=== PATIENT | female | born 1970 | race Asian ===

== ENCOUNTER 2017-01-28 10:35 | Outpatient (CLI) | payer MEDICAID ==
--- NOTE | 2017-01-29 17:01 | Mammography Report ---
DIGITAL SCREENING MAMMOGRAM: 01/28/2017 CLINICAL INDICATION: A 46-year-old for screening. COMPARISON: 12/2015, 12/2014, 04/2012. TECHNIQUE: Routine CC and MLO projections were obtained of the breasts. FINDINGS: The breasts demonstrate heterogeneously dense fibroglandular parenchyma bilaterally. Ther e is a shifting pattern of circumscribed nodules bilaterally, compatible with waxing and waning cysts . Coarse and punctate, typically benign calcifications are present. No suspicious masses, clustered microcalcifications, or regions of architectural distortion are identified. IMPRESSION: BENIGN FINDINGS. RECOMMENDATION: Routine annual screening unless otherwise clinically indicated. BI-RADS category 2, benign findings. STANDARD QUALIFYING STATEMENTS 1. This examination was reviewed with the aid of Computer-Aided Detection (CAD). 2. A negative or benign imaging report should not delay biopsy if clinically suspicious findings are present. Consider surgical consultation if warranted. More than 5% of cancers are not identified by i maging. 3. Dense breasts may obscure an underlying neoplasm. JOB #: [id number] EXT JOB #:[id number]
== END 2017-01-28 10:36 | disposition home or self-care (01) ==
LOC: DI 10:35
PROVIDERS: ATTEND Physician Assistant Medical
DX: Z12.31 Encounter for screening mammogram for malignant neoplasm of breast (principal)
CPT/HCPCS: 77067

== ENCOUNTER 2017-02-09 14:23 | Outpatient (CLI) | payer MEDICAID | END 2017-02-09 14:24 | disposition home or self-care (01) | LOC: SC 14:23 | PROVIDERS: ATTEND Internal Medicine Pulmonary Disease | DX: G47.30 Sleep apnea, unspecified (principal); G47.10 Hypersomnia, unspecified; R06.83 Snoring; G47.8 Other sleep disorders; G47.00 Insomnia, unspecified | CPT/HCPCS: 99203; 99212 ==

== ENCOUNTER 2017-03-24 11:15 | Outpatient (CLI) | payer MEDICAID | END 2017-03-24 11:16 | disposition home or self-care (01) | LOC: SC 11:15 | PROVIDERS: ATTEND Specialist | DX: G47.00 Insomnia, unspecified (principal); R06.83 Snoring | CPT/HCPCS: 99212; 99214 ==

== ENCOUNTER 2018-04-29 10:12 | Outpatient (CLI) | payer MEDICAID ==
--- NOTE | 2018-04-29 15:20 | DEXA Report ---
Reason: CROHN'S DISEASE Procedure Date: 04/29/2018 Accession Number: [id number] / [id number] Procedure: DEX - Dexa Spine and/or Hip CPT Code: FULL RESULT: EXAM: Dexa Spine and/or Hip DATE: 04/29/2018 10:55 AM CLINICAL HISTORY: CROHN'S DISEASE TECHNIQUE: Dual energy x-ray absorptiometry (DXA) was performed on a iwoca System. Regions measured are the AP Spine, femoral neck, and if needed forearm. COMPARISON: None. In accordance with the International Society for Clinical Densitometry (ISCD) guidelines, data from previous exams may be reanalyzed using current recommendations and techniques. This is done to allow a more accurate basis for comparison with the current study. FINDINGS: The data for the lumbar spine is as follows: BMD (g/cm/cm) T-SCORE Z-SCORE REGION L1 1.041 -0.7 -0.5 L2 1.126 -0.6 -0.4 L3 1.175 -0.2 0.0 L4 1.162 -0.3 -0.1 TOTAL 1.130 -0.4 -0.2 NOTE: All evaluable vertebrae are used for classification The data for the hip is as follows: BMD (g/cm/cm) T-SCORE Z-SCORE REGION Neck 0.774 -1.9 -1.2 TOTAL 0.768 -1.9 -1.5 NOTE: The femoral neck or total proximal femur, whichever is lowest, is used for classification. IMPRESSION: THE WHO CLASSIFICATION BASED ON THE INTERNATIONAL REFERENCE STANDARD IS OSTEOPENIA. THE FRACTURE RISK IS INCREASED. RECOMMENDATION: Patients with diagnosis of osteoporosis or osteopenia should have regular bone mineral density assessment. For those eligible for Medicare, routine testing is allowed once every 2 years. Testing frequency can be increased for patients who have rapidly progressing disease or for those who are receiving medical therapy to restore bone mass. COMMENT: World Health Organization (WHO) definitions for osteoporosis and osteopenia: NORMAL BMD: T-score at -1.0 or higher, fracture risk is low OSTEOPENIA BMD: T-score between -1.0 and -2.5, fracture risk is increased. OSTEOPOROSIS BMD: T-score at -2.5 or lower, fracture risk is high. National Osteoporosis Foundation recommends: 1. Obtain adequate dietary calcium (at least 1200 mg per day) and vitamin D (400-800 international units per day). 2. Participate, as appropriate, in regular weightbearing and muscle-strengthening exercise. 3. Avoid tobacco use and reduce alcohol and caffeine intake. 4. For more detailed information see the website at www.NOF.org.
== END 2018-04-29 10:13 | disposition home or self-care (01) ==
LOC: DI 10:12
PROVIDERS: ATTEND Physician Assistant Medical
DX: M85.88 Other specified disorders of bone density and structure, other site (principal); K50.90 Crohn's disease, unspecified, without complications
CPT/HCPCS: 77080

== ENCOUNTER 2018-06-11 08:00 | Outpatient (CLI) | payer MEDICAID | END 2018-06-11 23:59 | disposition home or self-care (01) | LOC: LAB.WCP 08:00 | PROVIDERS: ATTEND Surgery | DX: K50.80 Crohn's disease of both small and large intestine without complications (principal) | CPT/HCPCS: 83993 ==

== ENCOUNTER 2018-08-12 11:13 | Outpatient (CLI) | payer MEDICAID | END 2018-08-12 11:14 | disposition home or self-care (01) | LOC: LAB.WCP 11:13 | PROVIDERS: ATTEND Internal Medicine | DX: K50.80 Crohn's disease of both small and large intestine without complications (principal) | CPT/HCPCS: 36415; 81599; 83520 ==

== ENCOUNTER 2019-12-14 15:04 | Outpatient (CLI) | payer MEDICAID ==
[2019-12-14 19:01] LABS: BASOPHILS # (AUTO) 0.1 10^3/uL (0.0-0.1); BASOPHILS % (AUTO) 0.8 %; EOSINOPHILS # (AUTO) 0.1 10^3/uL (0.0-0.7); EOSINOPHILS % (AUTO) 1.7 %; HGB - HEMOGLOBIN 13.9 g/dL (12.0-16.0); LYMPHOCYTES # (AUTO) 2.6 10^3/uL (1.5-3.5); LYMPHOCYTES % (AUTO) 33.5 %; MEAN CORPUSCULAR HEMOGLOBIN 31.2 pg (27.0-31.0); MEAN CORPUSCULAR HGB CONC 33.8 g/dL (32.0-36.0); MEAN CORPUSCULAR VOLUME 92.4 fL (81.0-99.0); MONOCYTES # (AUTO) 0.4 10^3/uL (0.0-1.0); MONOCYTES % (AUTO) 4.7 %; NEUTROPHILS # (AUTO) 4.6 10^3/uL (1.5-6.6); PLT - PLATELET COUNT 349 10^3/uL (130-450); RED BLOOD COUNT 4.45 10^6/uL (4.20-5.40); RED CELL DISTRIBUTION WIDTH 13.4 % (12.0-15.0); WHITE BLOOD COUNT 7.8 x10^3/uL (4.8-10.8)
[2019-12-14 19:13] LABS: ALBUMIN/GLOBULIN RATIO 1.3 (1.0-2.2); ALKALINE PHOSPHATASE 36 IU/L (42-121); ALT ALANINE AMINOTRANSFERASE 21 IU/L (10-60); AST ASPARTATE AMINOTRANSFERASE 23 IU/L (10-42); BILIRUBIN,TOTAL 0.4 mg/dL (0.2-1.0); BUN - BLOOD UREA NITROGEN 14 mg/dL (6-20); CALCIUM 9.1 mg/dL (8.5-10.3); CARBON DIOXIDE - CO2 24 mmol/L (21-32); CHLORIDE 102 mmol/L (101-111); CREATININE 0.9 mg/dL (0.4-1.0); CRP - C-REACTIVE PROTEIN < 1.0 mg/dL (0-1.0); GLUCOSE 79 mg/dL (70-100); SODIUM 136 mmol/L (135-145); TOTAL PROTEIN 7.1 g/dL (6.7-8.2)
== END 2019-12-14 23:59 | disposition home or self-care (01) ==
LOC: LAB.WCP 15:04
PROVIDERS: ATTEND Physician Assistant Medical
DX: Z00.00 Encounter for general adult medical examination without abnormal findings (principal); K50.10 Crohn's disease of large intestine without complications
CPT/HCPCS: 36415; 80053; 84443; 85025; 86140

== ENCOUNTER 2019-12-19 08:00 | Outpatient (CLI) | payer MEDICAID | END 2019-12-19 23:59 | disposition home or self-care (01) | LOC: LAB.WCP 08:00 | PROVIDERS: ATTEND Internal Medicine Gastroenterology | DX: K50.10 Crohn's disease of large intestine without complications (principal) | CPT/HCPCS: 81599; 82274; 83631 ==

== ENCOUNTER 2020-03-22 11:10 | Outpatient (CLI) | payer MEDICAID | END 2020-03-22 11:11 | disposition critical access hospital (66) | LOC: EMS 11:10 | PROVIDERS: ATTEND Surgery | DX: R55 Syncope and collapse (principal); R11.2 Nausea with vomiting, unspecified | CPT/HCPCS: A0425; A0427 ==

== ENCOUNTER 2020-03-22 11:27 | Emergency (ER) | payer MEDICAID ==
[2020-03-22] MEDS ORDERED: ONDANSETRON 4 MG/2 ML VIAL IVP STA (11:37)
[2020-03-22] MEDS ORDERED: SODIUM CHLORIDE 0.9% 1,000 ML IV STA ×2 (11:37→13:28)
--- NOTE | 2020-03-22 11:42 | ED Physician Documentation ---
History of Present Illness - Stated complaint Stated Complaint: N/V - History obtained from History obtained from: Patient - Additonal information Additional information: Pt presents with nausea, vomiting, and feeling thirsty this morning. She also had some brief mild chest pressure several hours ago that has resolved on its own. Pt states she took cannabis oil last night for the first time and took it again this AM before her symptoms started. She was trying the cannabis oil for her myofascial pain syndrome. She has never used marijuana or cannabis products in the past. Also took ambien last night. Denies other drug use. Denies fever, chills, cough or URI sx, dyspnea, abdominal pain, diarrhea or constipation, urinary symptoms. Review of Systems Constitutional: reports: Reviewed and negative Eyes: reports: Reviewed and negative Ears: reports: Reviewed and negative Nose: reports: Reviewed and negative Throat: reports: Reviewed and negative Cardiac: reports: Chest pain / pressure, Palpitations Respiratory: reports: Reviewed and negative GI: reports: Nausea, Vomiting. denies: Abdominal Pain, Abdominal Swelling, Constipation, Diarrhea, Hematemesis, Bloody / black stool : reports: Reviewed and negative Skin: reports: Reviewed and negative Musculoskeletal: reports: Reviewed and negative Neurologic: reports: Reviewed and negative Psychiatric: reports: Anxiety, Insomnia PD PAST MEDICAL HISTORY - Past Medical History Cardiovascular: None Respiratory: Sleep apnea Endocrine/Autoimmune: None GI: Chronic diarrhea, Chronic constipation, Crohn's disease : None HEENT: None Psych: Anxiety, Panic attacks, Claustrophobia Musculoskeletal: Fatigue, Chronic back pain Derm: Eczema, Other - Past Surgical History General: Colonoscopy - Present Medications Home Medications: Ambulatory Orders Medication Instructions Recorded Confirmed Desogestrel-Ethinyl Estradiol 1 each PO DAILY 01/07/17 06/18/18 [ Day Tablet] Zolpidem [Ambien] 10 mg PO QPM 01/07/17 06/18/18 hydrOXYzine HCL [Hydroxyzine HCl] 10 mg PO AC PRN 01/07/17 06/18/18 Escitalopram [Lexapro] 1 tab ORAL DAILY 03/06/17 06/18/18 Fluticasone [Flonase] 1 sprays AMBERLY BID PRN 03/06/17 06/18/18 Naratriptan HCl 1 mg PO DAILY PRN 06/25/17 06/18/18 Acetaminophen [Tylenol] 325 mg PO RTQ6H PRN 02/10/18 06/18/18 Multivitamin [Multivitamins] 2 cap ORAL DAILY 02/10/18 06/18/18 Methotrexate 6 tab 03/22/20 Ondansetron Odt [Zofran] 4 mg TL Q6H PRN #10 tablet 03/22/20 - Allergies Allergies/Adverse Reactions: Allergies Allergy/AdvReac Type Severity Reaction Status Date / Time azathioprine Allergy Unknown Verified 02/10/18 13:30 azathioprine sodium * Allergy Unknown Verified 02/10/18 13:30 [From Imuran] chicken derived Allergy Unknown Verified 03/22/20 12:18 cinnamon Allergy Unknown Verified 03/22/20 12:18 diphenhydramine Allergy Emesis Verified 02/10/18 13:33 iodine Allergy Unknown Verified 02/10/18 13:30 lidocaine Allergy Edema Verified 02/10/18 13:33 nickel sulfate Allergy Unknown Uncoded 02/10/18 13:33 phenol formaldehyde resin Allergy Unknown Uncoded 02/10/18 13:33 potassium dichromate Allergy Unknown Uncoded 02/10/18 13:33 PPD Allergy Unknown Uncoded 02/10/18 13:33 Shellfish Allergy Edema Uncoded 02/10/18 13:34 PD ED PE NORMAL - Vitals Vital signs reviewed: Yes - General General: Alert and oriented X 3, No acute distress, Well developed/nourished - HEENT HEENT: Atraumatic, Moist mucous membranes - Cardiac Cardiac: RRR, No murmur, No gallop, No rub - Respiratory Respiratory: No respiratory distress, Clear bilaterally - Abdomen Abdomen: Normal bowel sounds, Soft, Non tender, Non distended - Derm Derm: Normal color, Warm and dry, No rash - Extremities Extremities: No deformity, No tenderness to palpate, Normal ROM s pain, No edema, No calf tenderness / cord - Neuro Neuro: Alert and oriented X 3 (awake and alert, but appears intoxicated) Eye Opening: Spontaneous Motor: Obeys Commands Verbal: Oriented GCS Score: 15 - Psych Psych: Normal mood Results - Vitals Vitals: Vital Signs - 24 hr 03/22/20 03/22/20 03/22/20 11:26 12:00 14:00 Temperature 36.2 C L Heart Rate 87 81 94 Respiratory 16 21 20 Rate Blood Pressure 119/69 114/78 107/79 O2 Saturation 99 99 99 03/22/20 14:58 Temperature Heart Rate 85 Respiratory 18 Rate Blood Pressure 108/77 O2 Saturation 99 Oxygen O2 Source Room air - Labs Labs: Laboratory Tests 03/22/20 03/22/20 03/22/20 12:08 12:08 12:08 WBC 7.6 RBC 4.23 Hgb 13.5 Hct 40.2 MCV 95.0 MCH 31.9 H MCHC 33.6 RDW 13.5 Plt Count 246 MPV 9.7 Neut # (Auto) 5.6 Lymph # (Auto) 1.5 [place] # (Auto) 0.3 Eos # (Auto) 0.1 Baso # (Auto) 0.1 Absolute Nucleated RBC 0.00 Nucleated RBC % 0.0 Sodium 136 Potassium 4.2 Chloride 104 Carbon Dioxide 28 Anion Gap 4.0 L BUN 19 Creatinine 0.9 Estimated GFR (MDRD) 67 L Glucose 119 H Calcium 8.7 Total Bilirubin 0.4 AST 28 ALT 33 Alkaline Phosphatase 35 L Troponin I High Sens < 2.3 L Total Protein 6.7 Albumin 3.8 Globulin 2.9 Albumin/Globulin Ratio 1.3 Lipase 35 Urine Color Urine Clarity Urine pH Ur Specific [place] Urine Protein Urine Glucose (UA) Urine Ketones Urine Occult Blood Urine Nitrite Urine Bilirubin Urine Urobilinogen Ur Leukocyte Esterase Urine RBC Urine WBC Ur Squamous Epith Cells Urine Bacteria Ur Microscopic Review Urine Culture Comments Urine HCG, Qual Urine Opiates Screen Ur Oxycodone Screen Urine Methadone Screen Ur Propoxyphene Screen Ur Barbiturates Screen Ur Tricyclics Screen Ur Phencyclidine Scrn Ur Amphetamine Screen U Methamphetamines Scrn U Benzodiazepines Scrn Urine Cocaine Screen U Cannabinoids Screen 03/22/20 14:30 WBC RBC Hgb Hct MCV MCH MCHC RDW Plt Count MPV Neut # (Auto) Lymph # (Auto) [place] # (Auto) Eos # (Auto) Baso # (Auto) Absolute Nucleated RBC Nucleated RBC % Sodium Potassium Chloride Carbon Dioxide Anion Gap BUN Creatinine Estimated GFR (MDRD) Glucose Calcium Total Bilirubin AST ALT Alkaline Phosphatase Troponin I High Sens Total Protein Albumin Globulin Albumin/Globulin Ratio Lipase Urine Color YELLOW Urine Clarity HAZY Urine pH 7.0 Ur Specific [place] 1.020 Urine Protein NEGATIVE Urine Glucose (UA) NEGATIVE Urine Ketones NEGATIVE Urine Occult Blood NEGATIVE Urine Nitrite NEGATIVE Urine Bilirubin NEGATIVE Urine Urobilinogen 0.2 (NORMAL) Ur Leukocyte Esterase TRACE H Urine RBC 0-5 Urine WBC 0-3 Ur Squamous Epith Cells MOD Squamous H Urine Bacteria Few Ur Microscopic Review INDICATED Urine Culture Comments NOT INDICATED Urine HCG, Qual NEGATIVE Urine Opiates Screen NEGATIVE Ur Oxycodone Screen NEGATIVE Urine Methadone Screen NEGATIVE Ur Propoxyphene Screen NEGATIVE Ur Barbiturates Screen NEGATIVE Ur Tricyclics Screen NEGATIVE Ur Phencyclidine Scrn NEGATIVE Ur Amphetamine Screen NEGATIVE U Methamphetamines Scrn NEGATIVE U Benzodiazepines Scrn NEGATIVE Urine Cocaine Screen NEGATIVE U Cannabinoids Screen POSITIVE H PD MEDICAL DECISION MAKING - ED course Complexity details: considered differential, d/w patient ED course: 49 yo F who presented w/ nausea and vomiting after taking cannabis oil for pain. 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 Pt felt better w/ IVF and anti emetics. I advised to avoid cannabis oil and other cannabis products. Return precautions reviewed w/ pt in detail. Departure - Departure Disposition: 01 Home, Self Care Clinical Impression: Cannabis abuse with intoxication Nausea and vomiting Qualifiers: Vomiting type: unspecified Vomiting Intractability: non-intractable Qualified Code(s): R11.2 - Nausea with vomiting, unspecified Condition: Good Prescriptions: Ondansetron Odt [Zofran] 4 mg TL Q6H PRN #10 tablet PRN Reason: Nausea / Vomiting Comments: You presented today with nausea and vomiting that is likely due to your consumption of cannabis oil. Your labs are reassuring. We treated you with antiemetics and IV fluids in the ER. I will discharge you home with antiemetics. Please stop using the cannabis oil. Return if you have new or worsening symptoms. Discharge Date/Time: 03/22/20 15:26
[2020-03-22 12:15] LABS: BASOPHILS # (AUTO) 0.1 10^3/uL (0.0-0.1); BASOPHILS % (AUTO) 0.7 %; EOSINOPHILS # (AUTO) 0.1 10^3/uL (0.0-0.7); EOSINOPHILS % (AUTO) 1.3 %; HGB - HEMOGLOBIN 13.5 g/dL (12.0-16.0); LYMPHOCYTES # (AUTO) 1.5 10^3/uL (1.5-3.5); LYMPHOCYTES % (AUTO) 19.4 %; MEAN CORPUSCULAR HEMOGLOBIN 31.9 pg (27.0-31.0); MEAN CORPUSCULAR HGB CONC 33.6 g/dL (32.0-36.0); MEAN PLATELET VOLUME 9.7 fL (7.9-10.8); MONOCYTES # (AUTO) 0.3 10^3/uL (0.0-1.0); MONOCYTES % (AUTO) 3.6 %; NEUTROPHILS # (AUTO) 5.6 10^3/uL (1.5-6.6); NEUTROPHILS % (AUTO) 74.1 %; PLT - PLATELET COUNT 246 10^3/uL (130-450); RED BLOOD COUNT 4.23 10^6/uL (4.20-5.40); RED CELL DISTRIBUTION WIDTH 13.5 % (12.0-15.0); WHITE BLOOD COUNT 7.6 x10^3/uL (4.8-10.8)
[2020-03-22 12:28] LABS: ALBUMIN 3.8 g/dL (3.2-5.5); ALBUMIN/GLOBULIN RATIO 1.3 (1.0-2.2); BILIRUBIN,TOTAL 0.4 mg/dL (0.2-1.0); CALCIUM 8.7 mg/dL (8.5-10.3); CREATININE 0.9 mg/dL (0.4-1.0); TOTAL PROTEIN 6.7 g/dL (6.7-8.2)
[2020-03-22] MEDS ORDERED: PROMETHAZINE INJ 12.5 MG in SODIUM CHLORIDE 0.9% 50 ML IV STA (12:41)
[2020-03-22 14:34] LABS: MUDS CUTOFF CONCENTRATIONS CUTOFF CONC BELOW:
[2020-03-22 14:37] LABS: BILIRUBIN,URINE NEGATIVE (NEGATIVE); GLUCOSE, URINE (UA) NEGATIVE (NEGATIVE); KETONES,URINE (UA) NEGATIVE (NEGATIVE); LEUKOCYTE ESTERASE, URINE TRACE (NEGATIVE); NITRITE,URINE NEGATIVE (NEGATIVE); OCCULT BLOOD,URINE NEGATIVE (NEGATIVE); PROTEIN,URINE NEGATIVE (NEGATIVE); UROBILINOGEN,URINE 0.2 (NORMAL) E.U./dL (NORMAL)
[2020-03-22 14:42] LABS: CLARITY,URINE HAZY (CLEAR); HCG UR QUAL NEGATIVE
[2020-03-22 14:50] LABS: RBC,URINE 0-5 /HPF (0-5); SQUAMOUS EPITHELIAL CELL,UR MOD Squamous (<= Few)
[2020-03-22 14:51] LABS: BACTERIA,URINE Few /HPF (None Seen)
[2020-03-22 14:52] LABS: AMPHETAMINE SCREEN,URINE NEGATIVE (NEGATIVE); BENZODIAZEPINES SCREEN, URINE NEGATIVE (NEGATIVE); COCAINE SCREEN URINE NEGATIVE (NEGATIVE); METHADONE SCREEN, URINE NEGATIVE (NEGATIVE); METHAMPHETAMINES SCREEN, URINE NEGATIVE (NEGATIVE); OPIATE SCREEN, URINE NEGATIVE (NEGATIVE); OXYCODONE SCREEN, URINE NEGATIVE (NEGATIVE); PROPOXYPHENE SCREEN, URINE NEGATIVE (NEGATIVE); TRICYCLIC ANTIDEPRESSANT,URINE NEGATIVE (NEGATIVE)
[2020-03-22 15:01] VITALS: BP 108/77
== END 2020-03-22 15:26 | disposition home or self-care (01) ==
LOC: EDUNIT# → ED 11:27
DX: F12.129 Cannabis abuse with intoxication, unspecified (principal); R11.2 Nausea with vomiting, unspecified; M79.18 Myalgia, other site; Z87.19 Personal history of other diseases of the digestive system
CPT/HCPCS: 36415; 80053; 80306; 81001; 81025; 83690; 84484; 85025; 93005; 96361; 96365; 96375; 99283; 99284; J7040; 81003; 87086

== ENCOUNTER 2020-11-02 14:42 | Emergency (ER) | payer MEDICAID ==
--- OUTSIDE RECORDS SUMMARY | 2020-11-02 14:46 | EXTERNAL MEDICAL SUMMARY RPT | Continuity of Care Document ---
: Demographics Phone Unavailable Preferred Language Senegalese Marital Status Unknown Mandaen Affiliation Unknown Race Unknown Ethnic Group Unknown Author Organization [place] Address [address] [phone] Phone Care Team Providers Name Role Phone Britta Lei Unavailable Unavailable Procedures date description facility 20201018 [facility] Vital Signs date measurement value source 20201018 weight_standard 134.99 lb 20201018 weight_metric 61.23 kg 20201018 temperature_standard 98.4 F 20201018 temperature_metric 36.89 C 20201018 respiration_rate 16 /min 20201018 height_standard 61 in 20201018 height_metric 154.94 cm 20201018 heart_rate 87 /min 20201018 BP_systolic 124 mm[Hg] 20201018 BP_diastolic 82 mm[Hg] 20201018 BMI 25.4 kg/m2
--- NOTE | 2020-11-02 14:57 | ED Physician Documentation ---
PD HPI FOCAL NEURO - Stated complaint Stated Complaint: BILAT ARM NUMBNESS - Chief complaint Chief Complaint: General - History obtained from History obtained from: Patient - History of Present Illness Timing - onset: How many hours ago (1-2), Today Timing - details: Abrupt onset (patient says she seemed to have quick onset of numbness and feeling of tightness in forearms dorsal/radial aspect both arms. Denies diffuse numbness, discoloration, nor obvious weakness per se. She had started new med Duloxetine yesterday; also was lifting furniture yesterday/cleaning closet today.) Severity of deficit: Moderate Numbness: Arm (dorsal/radial forearms both sides), Right, Left Associated symptoms: Neck pain (chronic without particular worsening today.). No: Headache, Chest pain, Back pain Contributing factors: negative: Vascular dz, Atrial fibrillation Baseline status: positive: A&OX3, ambulatory, indep Similar symptoms before: Has not had sx before Recently seen: Not recently seen Review of Systems Constitutional: reports: Myalgias. denies: Fever, Chills Nose: denies: Rhinorrhea / runny nose, Congestion Throat: denies: Sore throat Respiratory: denies: Cough Neurologic: reports: Numbness. denies: Focal weakness (but has feeling of tightness in forearm muscles.), Confused, Altered mental status, Headache, Head injury Endocrine: denies: Easy bruising / bleeding, Swollen lymph nodes Immunocompromised: denies: Immunocompromised PD PAST MEDICAL HISTORY - Past Medical History Cardiovascular: None Respiratory: Sleep apnea Neuro: Migraines Endocrine/Autoimmune: None GI: Chronic diarrhea, Chronic constipation, Crohn's disease : None HEENT: None Psych: Anxiety, Panic attacks, Claustrophobia Musculoskeletal: Fatigue, Chronic back pain Derm: Eczema, Other - Past Surgical History Past Surgical History: Yes General: Colonoscopy - Present Medications Home Medications: Ambulatory Orders Medication Instructions Recorded Confirmed Desogestrel-Ethinyl Estradiol 1 each PO DAILY 01/07/17 11/02/20 [Casey 28 Day Tablet] Zolpidem [Ambien] 10 mg PO QPM 01/07/17 11/02/20 hydrOXYzine HCL [Hydroxyzine HCl] 10 mg PO AC PRN 01/07/17 11/02/20 Escitalopram [Lexapro] 1 tab ORAL DAILY 03/06/17 11/02/20 Fluticasone [Flonase] 1 sprays AMBERLY BID PRN 03/06/17 11/02/20 Naratriptan HCl 2.5 mg PO DAILY PRN 06/25/17 11/02/20 Acetaminophen [Tylenol] 325 mg PO RTQ6H PRN 02/10/18 11/02/20 Ascorbic Acid [Vitamin C] 1,000 mg PO DAILY 11/02/20 11/02/20 Calcium Carbonate/Vitamin D3 1 tab PO DAILY 11/02/20 11/02/20 [Calcium 500 mg-Vit D3 600 Unit] Cyanocobalamin (Vitamin B-12) 2,500 mcg PO DAILY 11/02/20 11/02/20 [Vitamin B12] DULoxetine [Cymbalta] 30 mg PO DAILY 11/02/20 11/02/20 EPINEPHrine [Epinephrine] 0.03 mg INJ PRN 11/02/20 Gabapentin [Neurontin] 100 mg PO BID 11/02/20 11/02/20 Loratadine 10 mg PO DAILY 11/02/20 11/02/20 Topiramate [Topamax] 25 mg PO DAILY 11/02/20 11/02/20 dexAMETHasone [Decadron] 4 mg PO DAILY #5 tablet 11/02/20 - Allergies Allergies/Adverse Reactions: Allergies Allergy/AdvReac Type Severity Reaction Status Date / Time azathioprine Allergy Unknown Verified 11/02/20 14:52 azathioprine sodium * Allergy Unknown Verified 11/02/20 14:52 [From Imuran] chicken derived Allergy Unknown Verified 11/02/20 14:52 cinnamon Allergy Unknown Verified 11/02/20 14:52 diphenhydramine Allergy Emesis Verified 11/02/20 14:52 iodine Allergy Unknown Verified 11/02/20 14:52 lidocaine Allergy Edema Verified 11/02/20 14:52 nickel sulfate Allergy Unknown Uncoded 11/02/20 14:52 phenol formaldehyde resin Allergy Unknown Uncoded 11/02/20 14:52 potassium dichromate Allergy Unknown Uncoded 11/02/20 14:52 PPD Allergy Unknown Uncoded 11/02/20 14:52 Shellfish Allergy Edema Uncoded 11/02/20 14:52 - Social History Does the pt smoke?: No Smoking Status: Never smoker PD ED PE NORMAL - Vitals Vital signs reviewed: Yes - General General: Alert and oriented X 3, No acute distress, Well developed/nourished - Neck Neck: Supple, no meningeal sign, No bony TTP (some tender bilateral upper neck muscles. No rash nor sores. ), No adenopathy - Abdomen Abdomen: Soft, Non tender - Female Female : Deferred - Rectal Rectal: Deferred - Back Back: No CVA TTP - Derm Derm: Normal color, Warm and dry - Extremities Extremities: Other (forearms are not tender to palpate and she seems to have good color and pulses distally. Forearm compartments do not feel tight. ) - Neuro Neuro: Alert and oriented X 3, No motor deficit, No sensory deficit, Normal speech Results - Vitals Vitals: Vital Signs - 24 hr 11/02/20 11/02/20 14:52 16:42 Temperature 36.5 C 36.7 C Heart Rate 64 85 Respiratory 16 20 Rate Blood Pressure 138/86 H 145/100 H O2 Saturation 100 98 Oxygen O2 Source Room air - Labs Labs: Laboratory Tests 11/02/20 11/02/20 15:35 15:35 WBC 6.5 RBC 4.61 Hgb 14.4 Hct 41.0 MCV 88.9 MCH 31.2 H MCHC 35.1 RDW 13.1 Plt Count 298 MPV 9.8 Neut # (Auto) 3.3 Lymph # (Auto) 2.5 [place] # (Auto) 0.5 Eos # (Auto) 0.1 Baso # (Auto) 0.0 Absolute Nucleated RBC 0.00 Nucleated RBC % 0.0 Sodium 139 Potassium 3.5 Chloride 106 Carbon Dioxide 22 Anion Gap 11.0 BUN 14 Creatinine 0.9 Estimated GFR (MDRD) 67 L Glucose 90 Calcium 8.8 Magnesium 2.1 Total Bilirubin 0.9 AST 25 ALT 23 Alkaline Phosphatase 36 L C-Reactive Protein < 1.0 Total Protein 7.4 Albumin 4.2 Globulin 3.2 Albumin/Globulin Ratio 1.3 Lipase 38 PD MEDICAL DECISION MAKING - ED course Complexity details: reviewed results (electrolytes are normal. ) Departure - Departure Disposition: 01 Home, Self Care Clinical Impression: Arm numbness, Cervical radiculitis Condition: Stable Record reviewed to determine appropriate education?: Yes Instructions: ED Cervical Radiculopathy Follow-Up: Britta Lei PA-C [Primary Care Provider] - Prescriptions: dexAMETHasone [Decadron] 4 mg PO DAILY #5 tablet Comments: The pattern and location of your numbness would be suggestive of nerve root irritation from the neck. It does not sound strokelike. It would seem less likely to be related to the change in medication. That said, the timing is suspicious for relating to the medication change. Therefore I would suggest sticking with your current Lexapro for now and not continuing the duloxetine just yet. Heat and gentle range of motion for the neck. Some anti-inflammatory of Decadron steroid for another 5 days. Tylenol if needed for pains. See if the numbness in your arms improves and if so, then you could once again try transitioning to the new duloxetine and see if the symptoms recur. I do not believe they will as it may be just coincidental to some irritation in the neck nerve roots. Discharge Date/Time: 11/02/20 16:50
--- OUTSIDE RECORDS SUMMARY | 2020-11-02 15:03 | EXTERNAL MEDICAL SUMMARY RPT | Continuity of Care Document ---
: Demographics Phone Unavailable Preferred Language Lithuanian Marital Status Unknown Yarsani Affiliation Unknown Race Unknown Ethnic Group Unknown Author Organization [place] Address [address] [phone] Phone Care Team Providers Name Role Phone Britta Lei Unavailable Unavailable Procedures date description facility 20201018 [facility] Vital Signs date measurement value source 20201018 weight_standard 134.99 lb 20201018 weight_metric 61.23 kg 20201018 temperature_standard 98.4 F 20201018 temperature_metric 36.89 C 20201018 respiration_rate 16 /min 20201018 height_standard 61 in 20201018 height_metric 154.94 cm 20201018 heart_rate 87 /min 20201018 BP_systolic 124 mm[Hg] 20201018 BP_diastolic 82 mm[Hg] 20201018 BMI 25.4 kg/m2
[2020-11-02] MEDS ORDERED: HYDROcod/ACETAM 5/325 MG TABLET PO STA (15:28)
[2020-11-02] MEDS ORDERED: CHERRY SYRUP 10 ML UDC PO ONE (15:28)
[2020-11-02] MEDS ORDERED: DEXAMETHASONE 10 MG/ML VIAL PO STA (15:28)
[2020-11-02 15:47] LABS: BASOPHILS % (AUTO) 0.6 %; EOSINOPHILS # (AUTO) 0.1 10^3/uL (0.0-0.7); EOSINOPHILS % (AUTO) 1.5 %; HGB - HEMOGLOBIN 14.4 g/dL (12.0-16.0); LYMPHOCYTES # (AUTO) 2.5 10^3/uL (1.5-3.5); LYMPHOCYTES % (AUTO) 38.9 %; MEAN CORPUSCULAR HEMOGLOBIN 31.2 pg (27.0-31.0); MEAN CORPUSCULAR HGB CONC 35.1 g/dL (32.0-36.0); MEAN CORPUSCULAR VOLUME 88.9 fL (81.0-99.0); MEAN PLATELET VOLUME 9.8 fL (7.9-10.8); MONOCYTES # (AUTO) 0.5 10^3/uL (0.0-1.0); MONOCYTES % (AUTO) 7.1 %; NEUTROPHILS # (AUTO) 3.3 10^3/uL (1.5-6.6); NEUTROPHILS % (AUTO) 51.4 %; PLT - PLATELET COUNT 298 10^3/uL (130-450); RED BLOOD COUNT 4.61 10^6/uL (4.20-5.40); RED CELL DISTRIBUTION WIDTH 13.1 % (12.0-15.0); WHITE BLOOD COUNT 6.5 x10^3/uL (4.8-10.8)
[2020-11-02 16:05] LABS: ALBUMIN 4.2 g/dL (3.2-5.5); ALBUMIN/GLOBULIN RATIO 1.3 (1.0-2.2); ALKALINE PHOSPHATASE 36 IU/L (42-121); ALT ALANINE AMINOTRANSFERASE 23 IU/L (10-60); AST ASPARTATE AMINOTRANSFERASE 25 IU/L (10-42); BILIRUBIN,TOTAL 0.9 mg/dL (0.2-1.0); BUN - BLOOD UREA NITROGEN 14 mg/dL (6-20); CALCIUM 8.8 mg/dL (8.5-10.3); CARBON DIOXIDE - CO2 22 mmol/L (21-32); CHLORIDE 106 mmol/L (101-111); CREATININE 0.9 mg/dL (0.4-1.0); GFR - MDRD 67 (>89); GLUCOSE 90 mg/dL (70-100); LIPASE 38 U/L (22-51); MAGNESIUM 2.1 mg/dL (1.7-2.8); POTASSIUM 3.5 mmol/L (3.5-5.0); SODIUM 139 mmol/L (135-145); TOTAL PROTEIN 7.4 g/dL (6.7-8.2)
[2020-11-02 16:16] LABS: CRP - C-REACTIVE PROTEIN < 1.0 mg/dL (0-1.0)
[2020-11-02 16:42] VITALS: BP 145/100
== END 2020-11-02 16:50 | disposition home or self-care (01) ==
LOC: ED 14:42
DX: M54.12 Radiculopathy, cervical region (principal)
CPT/HCPCS: 36415; 80053; 83690; 83735; 85025; 86140; 99283; 99284; A9270

== ENCOUNTER 2020-12-01 23:51 | Outpatient (CLI) | payer MEDICAID | END 2020-12-01 23:52 | disposition critical access hospital (66) | LOC: EMS 23:51 | DX: R00.0 Tachycardia, unspecified (principal) | CPT/HCPCS: A0425; A0427; A0999 ==

== ENCOUNTER 2020-12-02 00:09 | Emergency (ER) | payer MEDICAID ==
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
[2020-12-02 00:53] LABS: BASOPHILS % (AUTO) 0.5 %; EOSINOPHILS # (AUTO) 0.1 10^3/uL (0.0-0.7); EOSINOPHILS % (AUTO) 1.3 %; HGB - HEMOGLOBIN 14.3 g/dL (12.0-16.0); LYMPHOCYTES # (AUTO) 2.4 10^3/uL (1.5-3.5); LYMPHOCYTES % (AUTO) 32.7 %; MEAN CORPUSCULAR HEMOGLOBIN 31.2 pg (27.0-31.0); MEAN CORPUSCULAR HGB CONC 34.9 g/dL (32.0-36.0); MEAN CORPUSCULAR VOLUME 89.3 fL (81.0-99.0); MEAN PLATELET VOLUME 9.7 fL (7.9-10.8); MONOCYTES # (AUTO) 0.5 10^3/uL (0.0-1.0); MONOCYTES % (AUTO) 6.6 %; NEUTROPHILS # (AUTO) 4.3 10^3/uL (1.5-6.6); NEUTROPHILS % (AUTO) 58.1 %; PLT - PLATELET COUNT 337 10^3/uL (130-450); RED BLOOD COUNT 4.59 10^6/uL (4.20-5.40); RED CELL DISTRIBUTION WIDTH 12.9 % (12.0-15.0); WHITE BLOOD COUNT 7.4 x10^3/uL (4.8-10.8)
[2020-12-02 01:08] LABS: ALBUMIN 4.2 g/dL (3.2-5.5); ALBUMIN/GLOBULIN RATIO 1.3 (1.0-2.2); BILIRUBIN,TOTAL 0.3 mg/dL (0.2-1.0); CALCIUM 8.8 mg/dL (8.5-10.3); CREATININE 0.9 mg/dL (0.4-1.0); POTASSIUM 3.4 mmol/L (3.5-5.0); TOTAL PROTEIN 7.5 g/dL (6.7-8.2)
--- OUTSIDE RECORDS SUMMARY | 2020-12-02 01:12 | EXTERNAL MEDICAL SUMMARY RPT | Continuity of Care Document ---
: Demographics Phone Unavailable Preferred Language Salvadorean Marital Status Unknown Gnosticist Affiliation Unknown Race Unknown Ethnic Group Unknown Author Organization [facility] Address [address] [phone] Phone Care Team Providers Name Role Phone Britta Lei Unavailable Unavailable Allergies Encounters Medications Problems Procedures date description facility 20201018 [facility] Results Vital Signs date measurement value source 20201018 weight_standard 134.99 lb 20201018 weight_metric 61.23 kg 20201018 temperature_standard 98.4 F 20201018 temperature_metric 36.89 C 20201018 respiration_rate 16 /min 20201018 height_standard 61 in 20201018 height_metric 154.94 cm 20201018 heart_rate 87 /min 20201018 BP_systolic 124 mm[Hg] 20201018 BP_diastolic 82 mm[Hg] 20201018 BMI 25.4 kg/m2
[2020-12-02 03:52] VITALS: BP 122/67
--- NOTE | 2020-12-02 08:53 | XRAY Report ---
PROCEDURE: Chest 2 View X-Ray INDICATIONS: palpitations, chest pain TECHNIQUE: 2 view(s) of the chest. COMPARISON: 2 view chest 01/02/2017 FINDINGS: Surgical changes and devices: None. Lungs and pleura: No pleural effusions or pneumothorax. Lungs are clear. Mediastinum: Mediastinal contours are normal. Heart size is normal. Bones and chest wall: No suspicious bony abnormalities. Soft tissues appear unremarkable. IMPRESSION: Normal for age, source of current symptoms is not seen. Reviewed by: Kenrick Rosado MD on 12/02/2020 7:52 AM [facility] Approved by: Kenrick Rosado MD on 12/02/2020 7:52 AM [facility] Station ID: [id number]
== END 2020-12-02 03:52 | disposition home or self-care (01) ==
LOC: EDUNIT# → ED 00:09
DX: R00.2 Palpitations (principal); R07.89 Other chest pain; R94.31 Abnormal electrocardiogram [ECG] [EKG]; R03.0 Elevated blood-pressure reading, without diagnosis of hypertension
CPT/HCPCS: 36415; 80053; 83690; 84484; 85025; 93005; 99284

== ENCOUNTER 2021-10-17 08:00 | Outpatient (CLI) | payer MEDICAID | END 2021-10-17 23:59 | disposition home or self-care (01) | LOC: LAB.N 08:00 | PROVIDERS: ATTEND Physician Assistant Medical | DX: R05.9 Cough, unspecified (principal); Z20.822 Contact with and (suspected) exposure to COVID-19 ==

== ENCOUNTER 2021-11-06 06:39 | Outpatient (CLI) | payer MEDICAID ==
--- NOTE | 2021-11-06 09:02 | Ultrasound Report ---
PROCEDURE: Abdomen Complete INDICATIONS: EPIGASTRIC PAIN TECHNIQUE: Real-time scanning was performed of the abdominal and retroperitoneal organs, with image documentatio n. COMPARISON: None. FINDINGS: AORTA: The visualized abdominal aorta is normal. IVC: The visualized IVC is normal. LIVER: Increased echogenicity, measures 15 cm. 2 hypoechoic lesions are seen measuring up to 1 cm, compatible with cysts. The portal vein is patent. PANCREAS: The visualized portions of the pancreas are normal. Gallbladder and biliary tree: No gallbladder wall thickening or pericholecystic fluid. A 4.4 mm jesus yp is seen. The common bile duct measures 3.3 mm. RIGHT KIDNEY: Normal in appearance with no hydronephrosis. Measuring 9.5 cm in length. The renal co rtex thickness measures 1.2 cm. LEFT KIDNEY: Normal in appearance with no hydronephrosis. Measuring 9.4 cm in length. The renal cor catrachito thickness measures 1.3 cm. Spleen: Normal appearance, measuring 8.7 cm. No evidence for ascites. IMPRESSION: 1.4.4 mm gallbladder polyp. 2.Hepatic steatosis. 3.Simple appearing hepatic cysts. Reviewed by: Bakari Marsh MD on 11/06/2021 9:00 AM PDT Approved by: Bakari Marsh MD on 11/06/2021 9:00 AM PDT Station ID: [id number]
== END 2021-11-06 06:40 | disposition home or self-care (01) ==
LOC: DI 06:39
PROVIDERS: ATTEND Physician Assistant
DX: K82.4 Cholesterolosis of gallbladder (principal); K76.0 Fatty (change of) liver, not elsewhere classified; K76.89 Other specified diseases of liver